=== PATIENT | female | born 1965 | race Caucasian/White ===

== ENCOUNTER 2018-11-26 21:02 | Emergency (ER) | payer OTHER ==
[~2018-11-26] VITALS: Ht 160 cm; Wt 59.0 kg
[2018-11-26] MEDS ORDERED: ONDANSETRON 4 MG/2 ML VIAL IV ONE ×2 (22:00→23:30)
[2018-11-26] MEDS ORDERED: MORPHINE SULFATE 2 MG/1 ML DISP.SYRIN IV ONE (22:00)
[2018-11-26] MEDS ORDERED: IV NORMAL SALINE 1000 ML BAG IV ONE (22:00)
[2018-11-26 22:12] LABS: BASOPHILS % (AUTO) 0.3 % (0.0-2.0); EOSINOPHILS % (AUTO) 0.2 % (0.0-7.0); HEMATOCRIT 43.4 % (31.2-41.9); HEMOGLOBIN 14.6 g/dL (10.9-14.3); LYMPHOCYTES # (AUTO) 1.3 K/uL (20.0-40.0); LYMPHOCYTES % (AUTO) 12.1 % (20.5-51.5); MEAN CORPUSCULAR HEMOGLOBIN 31.2 uug (24.7-32.8); MEAN CORPUSCULAR HGB CONC 34 g/dL (32.3-35.6); MEAN CORPUSCULAR VOLUME 92.8 fL (75.5-95.3); MONOCYTES # (AUTO) 0.3 K/uL (2.0-10.0); MONOCYTES % (AUTO) 2.5 % (0.0-11.0); NEUTROPHILS # (AUTO) 9.4 K/uL (1.8-8.9); NEUTROPHILS % (AUTO) 84.9 % (38.5-71.5); PLATELET COUNT (AUTO) 290 K/uL (179-408); RED BLOOD CELL COUNT(AUTO) 4.68 MIL/uL (3.63-4.92); WHITE BLOOD COUNT (AUTO) 11.1 K/uL (3.8-11.8)
[2018-11-26] MEDS ORDERED: ONDANSETRON 4 MG/2 ML VIAL ONE ×2 (22:13→23:05)
[2018-11-26] MEDS ORDERED: MORPHINE SULFATE 4 MG/1 ML DISP.SYRIN ONE ×2 (22:13→23:05)
[2018-11-26 22:18] LABS: CREATININE 1.3 mg/dL (0.6-1.3)
[2018-11-26 22:24] LABS: BILIRUBIN,DIRECT 0.1 mg/dL (0.0-0.2); BILIRUBIN,TOTAL 0.4 mg/dL (0.2-1.0); TOTAL PROTEIN, SERUM 8.3 g/dL (6.4-8.2)
[2018-11-26 22:41] LABS: *BILIRUBIN,URIN NEGATIVE (NEGATIVE); *CLARITY,URINE SLIGHTLY CLOUDY (CLEAR); *COLOR,URINE YELLOW (YELLOW); *KETONES,URINE 1+ (NEGATIVE); *UROBILINOGEN,URINE 0.2 E.U./dl (NORMAL); LEUKOCYTE ESTERASE ,URINE NEGATIVE (NEGATIVE); NITRITE, URINE NEGATIVE (NEGATIVE); PH,URINE 5.5 (5.0-8.0); UGLUCOSE NEGATIVE (NEGATIVE)
[2018-11-26 22:45] LABS: *BLOOD, URINE TRACE (NEGATIVE)
[2018-11-26 22:47] LABS: WBC,URINE 0-3 /HPF (0-3)
[2018-11-26 22:48] LABS: SQUAMOUS EPITHELIAL CELL,UR MODERATE /HPF (NONE SEEN)
[2018-11-26] MEDS ORDERED: MORPHINE SULFATE 4 MG/1 ML DISP.SYRIN IV ONE (23:00)
[2018-11-27] MEDS ORDERED: FAMOTIDINE. 20 MG/2 ML VIAL IV ONE ×2 (00:10→00:15)
--- NOTE | 2018-11-27 02:07 | NUR ---
Patient discharged to home in stable conditon. Written and verbal after care instructions given. Patient verbalizes understanding of instructions. Patient A/O x 4 and ambulated out of ER with stable gait. Patient instructed not to drive.
[2018-11-27 02:12] VITALS: BP 134/72
== END 2018-11-27 02:13 | disposition home or self-care (01) ==
LOC: ER 21:05
DX: K44.9 Diaphragmatic hernia without obstruction or gangrene (principal); R31.29 Other microscopic hematuria; R11.10 Vomiting, unspecified; R19.7 Diarrhea, unspecified; F12.10 Cannabis abuse, uncomplicated; Z90.49 Acquired absence of other specified parts of digestive tract
CPT/HCPCS: 36415; 74176; 80048; 80076; 81000; 81001; 83605; 83690; 84484; 84702; 85025; 85730; 93005; 96361; 96374; 96375 ×2; 96376 ×2; 99284; J2270 ×2; J2405 ×2; J3490; 70030-TC; A4663; J7030